=== PATIENT | male | born 1995 | race Caucasian/White ===

== ENCOUNTER 2024-02-27 14:19 | Emergency (ER) | payer OTHER, SELFPAY ==
[2024-02-27 14:42] VITALS: BP 108/64; PULSE 107; RESP 18; TEMP 37.2; O2SAT 98
--- NOTE | 2024-02-27 14:51 | ED.URI ---
HPI - URI/Sore Throat General Chief Complaint: Upper Respiratory Infection Stated Complaint: sore throat / fever / bodyaches Time Seen by Provider: 02/27/24 14:51 Source: patient Mode of arrival: ambulatory Limitations: no limitations History of Present Illness HPI Narrative: 28-year-old male presents with complaint of headache, fever, sore throat for 2 days. Patient's positive for strep throat. Patient denies nausea vomiting. All systems reviewed and negative except as noted above. Related Data Allergies Allergy/AdvReac Type Severity Reaction Status Date / Time No Known Allergies Allergy Verified 02/27/24 14:49 Review of Systems Review of Systems: CONSTITUTIONAL: reports fever, chills, or sweats. EYES: Denies visual changes, redness, or discharge. ENT: Denies rhinorrhea, congestion . Reports sore throat. Denies otalgia. CARDIOVASCULAR: Denies chest pain, palpitations, or edema. RESPIRATORY: Denies cough or dyspnea. GASTROINTESTINAL: Denies abdominal pain, nausea, vomiting, or diarrhea. GENITOURINARY: Denies dysuria or hematuria. SKIN: Denies rash or itching. MUSCULOSKELETAL: Denies back pain, joint pain, or myalgia. NEUROLOGIC: Denies headache, numbness, or weakness. PSYCHIATRIC: Denies anxiety or depression. All other systems reviewed are negative, except as documented in HPI. PMFSH Family History Family History Grandparent Carcinoma of colon Social History Social History Smoking status: Never smoker Alcohol intake: current Drinks per week: 10 Alcohol use details: beer Substance use: never Substance use type: does not use Living arrangements: with family Occupation/Education: occupation Additional occupation/education comments: [employer] for [employer] Gender identity (if verbalized by the patient): Male Comments At time of signature, agree with nursing past medical, surgical, social and family history. There is no relevant family history pertinent to the presenting complaint. Exam Narrative: GENERAL: This is a well-nourished, well-developed patient, in no apparent distress. HEAD: normocephalic, atraumatic. EYES: PERRL. Sclera clear/white. Vision is grossly intact. EARS: External ears normal, auditory canals clear and without drainage, TMs normal without perforation. Hearing grossly intact. NOSE: External nose normal with no obvious nasal discharge, nares without redness, no rhinorrhea. THROAT: Mucous membranes moist, mild erythema without significant swelling or exudates NECK: Neck supple, non-tender without lymphadenopathy, masses or thyromegaly. CARDIOVASCULAR: Regular rate and rhythm without murmurs, gallops, or rubs. RESPIRATORY: Clear to auscultation. Breath sounds equal bilaterally. No wheezes, rales, or rhonchi. SKIN: warm, Dry, intact with no suspicious lesions or rash, good texture and turgor. NEURO: awake, alert, and oriented to person, place and time. There were no obvious focal neurologic abnormalities. EXTREMITIES: No joint tenderness, effusion, or edema noted. Course Course Level of Care: Express Care Visit Vital Signs Vital signs: Vital Signs Temperature 37.2 C 02/27/24 14:42 Pulse Rate 107 H 02/27/24 14:42 Respiratory Rate 18 02/27/24 14:42 Blood Pressure 108/64 02/27/24 14:42 Pulse Oximetry 98 02/27/24 14:42 Oxygen Delivery Room Air 02/27/24 14:42 Temperature 37.2 C 02/27/24 14:42 Pulse Rate 107 H 02/27/24 14:42 Respiratory Rate 18 02/27/24 14:42 Blood Pressure 108/64 02/27/24 14:42 Pulse Oximetry 98 02/27/24 14:42 Oxygen Delivery Room Air 02/27/24 14:42 reviewed MDM - URI/Sore Throat MDM Narrative Medical decision making narrative: Patient is aware of diagnosis, understands and agrees to treatment plan. Anticipatory guidance given. Patient agrees to follow-up as directed and is aware of reasons to seek care at the emergency department. Portions of this record may have been created with voice recognition software positive strep. Will treat with amoxicillin. Patient nontoxic, well appearing. Differential Diagnosis Differential diagnosis: Likely pharyngitis Lab Data Labs: Lab Results 02/27/24 Range/Units 15:01 POC Grp A Strep Screen Positive (Negative) Discharge Plan Discharge Clinical Impression: Strep throat Patient Disposition: Home, Self-Care Condition: Stable Instructions: Antibiotic Form, Strep Throat (DC) Additional Instructions: your strep test was positive today. Take antibiotic as prescribed until gone. Change toothbrush after taking antibiotic for 24 hours. Take Tylenol or ibuprofen every 6-8 hours as needed for pain. Drink at least 64 oz of water a day. Follow-up with your primary care physician if pain is not improving. Prescriptions: New amoxicillin 500 mg capsule 500 mg PO Q12H 10 Days Qty: 20 0RF Follow-up/Referrals: Florian,Rayo Johnson MD [Primary Care Provider] - Time of Disposition: 15:02
[2024-02-27 15:03] LABS: EDSTREPNEGPOS1 Positive (Negative)
== END 2024-02-27 15:08 | disposition home or self-care (01) ==
PROVIDERS: Emergency Provider Nurse Practitioner Family; PCP Internal Medicine
DX: J02.0 Streptococcal pharyngitis (principal)
CPT/HCPCS: 87880; 99213; G0463